=== PATIENT | female | born 2000 | race African-American/Black ===

== ENCOUNTER 2023-12-26 16:04 | Emergency (ER) | payer SELFPAY ==
[2023-12-26 16:06] VITALS: BP 120/86
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
== END 2023-12-26 17:25 | disposition home or self-care (01) ==
LOC: EMR 16:04
PROVIDERS: EMERGENCY PHYSICIAN Student in an Organized Health Care Education/Training Program
DX: S06.0XAA Concussion with loss of consciousness status unknown, initial encounter (principal); V43.52XA Car driver injured in collision with other type car in traffic accident, initial encounter
CPT/HCPCS: 99281